=== PATIENT | male | born 1950 | race Asian ===

== ENCOUNTER 2018-06-15 19:00 | Emergency (ER) | payer MEDICARE ==
[~2018-06-15] VITALS: Ht 167.6 cm; Wt 64.4 kg
[2018-06-15] MEDS ORDERED: ATORVASTATIN CA20 MG ORAL (19:13)
[2018-06-15] MEDS ORDERED: ASPIR 8181 MG ORAL (19:13)
[2018-06-15] MEDS ORDERED: ATENOLOL25 MG ORAL (19:13)
[2018-06-15] MEDS ORDERED: CLOPIDOGREL75 MG ORAL (19:13)
[2018-06-15 19:38] LABS: EOSINOPHILS % (AUTO) 2.9 % (0.0-3.0); HEMATOCRIT 42.2 % (42.0-52.0); HEMOGLOBIN 15.3 G/DL (14.2-18.0); LYMPHOCYTES % (AUTO) 24.8 % (20.0-45.0); MEAN CORPUSCULAR VOLUME 91 FL (80-99); MONOCYTES % (AUTO) 8.1 % (1.0-10.0); NEUTROPHILS % (AUTO) 63.2 % (45.0-75.0); PLATELET COUNT 238 K/UL (150-450); RED BLOOD COUNT 4.66 M/UL (4.70-6.10); RED CELL DISTRIBUTION WIDTH 10.6 % (11.6-14.8); WHITE BLOOD COUNT 7.2 K/UL (4.8-10.8)
[2018-06-15 19:39] VITALS: BP 176/129
[2018-06-15] MEDS ORDERED: Morphine Sulfate 2mg/ml Inj(IV/IM USE ONLY) IVP ONE (19:45)
[2018-06-15 20:06] LABS: ANION GAP 9 mmol/L (5-15); BLOOD UREA NITROGEN 15 mg/dL (7-18); CALCIUM 9.4 MG/DL (8.5-10.1); CARBON DIOXIDE 27 MMOL/L (21-32); CHLORIDE 96 MMOL/L (98-107); POTASSIUM 3.9 MMOL/L (3.5-5.1); SODIUM 132 MMOL/L (136-145)
[2018-06-15 20:20] LABS: ALANINE AMINOTRANSFERASE 24 U/L (12-78); ALBUMIN 4.4 G/DL (3.4-5.0); ALBUMIN/GLOBULIN RATIO 1.1 (1.0-2.7); ALKALINE PHOSPHATASE 69 U/L (46-116); ASPARTATE AMINO TRANSFERASE 20 U/L (15-37); BILIRUBIN,TOTAL 0.7 MG/DL (0.2-1.0); CKMB 0.7 NG/ML (0.0-3.6); CREATINE KINASE 95 U/L (26-308)
[2018-06-15] MEDS: Nitroglycerin Subl 0.4mg tab SL PRN ×2 (20:55→21:23)
[2018-06-15] MEDS ORDERED: NITROSTAT0.4 M2 SL (21:02)
[2018-06-15 21:30] VITALS: BP 163/78
--- NOTE | 2018-06-15 21:50 | Emergency Room Report ---
History of Present Illness General Chief Complaint: General Complaint Source: Patient Present Illness HPI Patient is a 67-year-old male who presented after increased left sided shoulder pain. Patient onset of symptoms approximately one hour prior to arrival. Patient had a recent cardiac catheterization performed at [facility]. He reports having increased nausea as well as increased sweating. The pain was associated with left shoulder. The patient had recent the stent placement the patient poorly had developed A. fib while in the procedure and this converted with amiodarone. Patient had reportedly been cardioverted. Allergies: Coded Allergies: No Known Allergies (Unverified , 06/15/18) Patient History Past Medical History: see triage record Reviewed Nursing Documentation: PMH: Agreed; PSxH: Agreed Nursing Documentation-PMH Past Medical History: No History, Except For Review of Systems All Other Systems: negative except mentioned in HPI Physical Exam Vital Signs Date Time Temp Pulse Resp B/P (MAP) Pulse Ox O2 Delivery O2 Flow Rate FiO2 06/15/18 19:05 97.8 61 18 186/87 97 Room Air 97.9 Sp02 EP Interpretation: reviewed, normal General Appearance: normal inspection, well appearing, no apparent distress, alert, GCS 15 Head: atraumatic ENT: normal ENT inspection, hearing grossly normal, normal voice Neck: normal inspection, full range of motion, supple, no bony tend Respiratory: normal inspection, lungs clear, normal breath sounds, no respiratory distress, no retraction, no wheezing Cardiovascular #1: regular rate, rhythm, no edema Gastrointestinal: normal inspection, normal bowel sounds, non tender, soft, no guarding, no hernia Genitourinary: no CVA tenderness Musculoskeletal: normal inspection, back normal, normal range of motion Neurologic: normal inspection, alert, oriented x3, responsive, reject opener and filler III-XII nml as tested, motor strength/tone normal, speech normal Psychiatric: normal inspection, judgement/insight normal, mood/affect normal Skin: normal inspection, normal color, no rash Procedures Critical Care Time Critical Care Time Patient had a critical medical condition which untreated could potentially result in life or limb threatening injury. Total critical care time excluding procedures approximately 45 minutes. Medical Decision Making Diagnostic Impression: Primary Impression: Shoulder pain, left Additional Impression: ACS (acute coronary syndrome) ER Course Differential diagnosis included but was not limited to acute coronary syndrome, pulmonary embolism, pneumonia, aortic dissection, shingles, pneumothorax, aortic dissection, esophageal rupture, pericarditis. Patient presented for left shoulder pain. Differential diagnosis included was not limited to pneumothorax , fracture, dislocation, aortic tear, myocardial infarction among others. Because of complexity of patient's case laboratory testing and imaging studies were ordered. EKG interpreted by me showed normal sinus rhythm with rate of [address] or T wave changes.A repeat EKG was essentially unchanged. Patient was given nitroglycerin. And he is also given morphine.Patient was discussed with Dr. Gibbs from [facility] who agreed to accept the patient is a transfer Labs Test 06/15/18 19:29 White Blood Count 7.2 K/UL (4.8-10.8) Red Blood Count 4.66 M/UL (4.70-6.10) Hemoglobin 15.3 G/DL (14.2-18.0) Hematocrit 42.2 % (42.0-52.0) Mean Corpuscular Volume 91 FL (80-99) Mean Corpuscular Hemoglobin 32.8 PG (27.0-31.0) Mean Corpuscular Hemoglobin Concent 36.2 G/DL (32.0-36.0) Red Cell Distribution Width 10.6 % (11.6-14.8) Platelet Count 238 K/UL (150-450) Mean Platelet Volume 6.8 FL (6.5-10.1) Neutrophils (%) (Auto) 63.2 % (45.0-75.0) Lymphocytes (%) (Auto) 24.8 % (20.0-45.0) Monocytes (%) (Auto) 8.1 % (1.0-10.0) Eosinophils (%) (Auto) 2.9 % (0.0-3.0) Basophils (%) (Auto) 1.0 % (0.0-2.0) Prothrombin Time 10.3 SEC (9.30-11.50) Prothromb Time International Ratio 1.0 (0.9-1.1) Activated Partial Thromboplast Time 29 SEC (23-33) Sodium Level 132 MMOL/L (136-145) Potassium Level 3.9 MMOL/L (3.5-5.1) Chloride Level 96 MMOL/L (98-107) Carbon Dioxide Level 27 MMOL/L (21-32) Anion Gap 9 mmol/L (5-15) Blood Urea Nitrogen 15 mg/dL (7-18) Creatinine 1.0 MG/DL (0.55-1.30) Estimat Glomerular Filtration Rate > 60 mL/min (>60) Glucose Level 122 MG/DL (74-106) Calcium Level 9.4 MG/DL (8.5-10.1) Total Bilirubin 0.7 MG/DL (0.2-1.0) Aspartate Amino Transf (AST/SGOT) 20 U/L (15-37) Alanine Aminotransferase (ALT/SGPT) 24 U/L (12-78) Alkaline Phosphatase 69 U/L (46-116) Total Creatine Kinase 95 U/L (26-308) Creatine Kinase MB 0.7 NG/ML (0.0-3.6) Creatine Kinase MB Relative Index 0.7 Troponin I 0.027 ng/mL (0.000-0.056) Pro-B-Type Natriuretic Peptide 78 pg/mL (0-125) Total Protein 8.5 G/DL (6.4-8.2) Albumin 4.4 G/DL (3.4-5.0) Globulin 4.1 g/dL Albumin/Globulin Ratio 1.1 (1.0-2.7) EKG Diagnostic Results Rate: normal Rhythm: NSR ST Segments: no acute changes Rhythm Strip Diag. Results EP Interpretation: yes Rhythm: NSR, no PVC's, no ectopy Last Vital Signs Date Time Temp Pulse Resp B/P (MAP) Pulse Ox O2 Delivery O2 Flow Rate FiO2 06/15/18 21:30 66 17 163/78 99 Room Air 06/15/18 19:44 97.8 Status: unchanged Disposition: XFER SHT-TRM HOSP Condition: Serious Referrals: NON PHYSICIAN (PCP) José Soliman MD Jun 15, 2018 21:50
[2018-06-15 22:30] VITALS: BP 149/59
--- NOTE | 2018-06-16 09:52 | Diagnostic Imaging Report ---
Indication: Chest pain Technique: One view of the chest Comparison: none Findings: Lungs and pleural spaces are clear. Heart size is normal. The bones are unremarkable Impression: No acute process
== END 2018-06-15 22:30 | disposition short-term general hospital (02) ==
LOC: EMR 19:50
DX: I24.9 Acute ischemic heart disease, unspecified (principal); M25.512 Pain in left shoulder; Z98.61 Coronary angioplasty status; I10 Essential (primary) hypertension; Z87.891 Personal history of nicotine dependence
CPT/HCPCS: 36415; 71045; 80053; 82550; 82553; 83880; 84484; 85025; 85610; 85730; 93005; 96372; 99291; J2270

== ENCOUNTER 2018-09-03 19:45 | Emergency (ER) | payer BC, MEDICARE ==
[~2018-09-03] VITALS: Ht 167.6 cm; Wt 63.5 kg
[~2018-09-03 19:45] MED LIST: ASPIR 8181 MG ORAL; ATENOLOL25 MG ORAL; ATORVASTATIN CA20 MG ORAL; CLOPIDOGREL75 MG ORAL; NITROSTAT0.4 M2 SL
[2018-09-03] MEDS ORDERED: Isovue-300 100ml vial INJ PRN (20:15)
[2018-09-03] MEDS ORDERED: Isovue-370 150ml vial INJ PRN (20:15)
--- NOTE | 2018-09-03 20:16 | Emergency Room Report ---
History of Present Illness General Chief Complaint: Hypertension Present Illness HPI Mr. Carbone is a 67-year-old male with history of coronary artery disease who presents with right flank pain sudden onset on yesterday. At the lower thoracic upper CVA region. dull pain without radiation. Pain does not change with movement. 4 out of 10 mild severity. History of angioplasty emergent with coronary artery stent in May. Otherwise healthy. Markedly elevated BP today. Patient does not have a history of hypertension. Patient took nitroglycerin prior to arrival. 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 Review of Systems Constitutional: Denies: fever, malaise Cardiovascular: Denies: chest pain Gastrointestinal: Denies: abdominal pain Musculoskeletal: Reports: back pain All Other Systems: negative except mentioned in HPI Physical Exam Vital Signs Date Time Temp Pulse Resp B/P (MAP) Pulse Ox O2 Delivery O2 Flow Rate FiO2 09/03/18 19:50 97.7 70 16 194/90 97 Sp02 EP Interpretation: reviewed, normal General Appearance: no apparent distress, alert, GCS 15, non-toxic Head: normocephalic, atraumatic Eyes: bilateral eye normal inspection ENT: hearing grossly normal, normal pharynx, no angioedema, normal voice Neck: full range of motion, supple/symm/no masses Respiratory: chest non-tender, lungs clear, normal breath sounds, speaking full sentences Cardiovascular #1: regular rate, rhythm, no edema, no gallop, no murmur, no rub Gastrointestinal: normal bowel sounds, non tender, soft, non-distended, no guarding, no rebound Genitourinary: normal inspection, no CVA tenderness Musculoskeletal: back normal, gait/station normal, normal range of motion Neurologic: alert, oriented x3, responsive, motor strength/tone normal, sensory intact, speech normal Psychiatric: judgement/insight normal, memory normal, mood/affect normal, no suicidal/homicidal ideation Skin: normal color, no rash, warm/dry, well hydrated Lymphatic: normal inspection Medical Decision Making EKG Diagnostic Results EKG Time: 20:30 Rate: normal ST Segments: no acute changes Other Impression normal sinus rhythm normal rate normal axis normal intervals no ST elevation no ST-T signs of ischemia Last Vital Signs Date Time Temp Pulse Resp B/P (MAP) Pulse Ox O2 Delivery O2 Flow Rate FiO2 09/03/18 19:50 97.7 70 16 194/90 97 Dione Martinez MD Sep 03, 2018 20:16
[2018-09-03 20:56] LABS: APPEARANCE,URINE CLEAR; BILIRUBIN, URINE NEGATIVE (NEGATIVE); COLOR,URINE PALE YELLOW; GLUCOSE, URINE (UA) NEGATIVE (NEGATIVE); KETONES,URINE NEGATIVE (NEGATIVE); LEUKOCYTE ESTERASE ,URINE NEGATIVE (NEGATIVE); NITRITE,URINE NEGATIVE (NEGATIVE); PH,URINE 7 (4.5-8.0); PROTEIN,URINE NEGATIVE (NEGATIVE); UROBILINOGEN,URINE NORMAL MG/DL (0.0-1.0)
[2018-09-03 20:57] LABS: BASOPHILS % (AUTO) 1.1 % (0.0-2.0); EOSINOPHILS % (AUTO) 4.8 % (0.0-3.0); HEMATOCRIT 42.3 % (42.0-52.0); HEMOGLOBIN 15.3 G/DL (14.2-18.0); LYMPHOCYTES % (AUTO) 16.8 % (20.0-45.0); MEAN CORPUSCULAR VOLUME 91 FL (80-99); MONOCYTES % (AUTO) 7.6 % (1.0-10.0); NEUTROPHILS % (AUTO) 69.6 % (45.0-75.0); PLATELET COUNT 193 K/UL (150-450); RED BLOOD COUNT 4.63 M/UL (4.70-6.10); RED CELL DISTRIBUTION WIDTH 10.6 % (11.6-14.8); WHITE BLOOD COUNT 5.6 K/UL (4.8-10.8)
[2018-09-03 21:14] LABS: ANION GAP 7 mmol/L (5-15); BLOOD UREA NITROGEN 12 mg/dL (7-18); CALCIUM 8.9 MG/DL (8.5-10.1); CARBON DIOXIDE 27 MMOL/L (21-32); CHLORIDE 100 MMOL/L (98-107); CREATININE 0.8 MG/DL (0.55-1.30); POTASSIUM 3.6 MMOL/L (3.5-5.1); SODIUM 134 MMOL/L (136-145)
[2018-09-03 21:18] LABS: ALANINE AMINOTRANSFERASE 22 U/L (12-78); ALBUMIN 3.9 G/DL (3.4-5.0); ALBUMIN/GLOBULIN RATIO 0.9 (1.0-2.7); ALKALINE PHOSPHATASE 67 U/L (46-116); ASPARTATE AMINO TRANSFERASE 19 U/L (15-37); BILIRUBIN,TOTAL 0.4 MG/DL (0.2-1.0)
[2018-09-03 21:51] VITALS: BP 161/75
[2018-09-03 23:22] VITALS: BP 141/71
--- NOTE | 2018-09-04 12:21 | Diagnostic Imaging Report ---
Indication: Abdominal Pain Technique: Continuous helical transaxial imaging of the chest, abdomen and pelvis was obtained from the thoracic inlet to the pubic symphysis during rapid intravenous contrast administration. Arterial phase of enhancement obtained. Coronal 2-D reformats were also obtained and maximum intensity projection images in multiple planes. Study obtained in a Siemens sensation [address] Total Dose length Product (DLP): [address] Dose Index Volume (CTDIvol): 0.17, 0.15, 12.62, 12.62, 19.42, 12.42 mGy Comparison: None Findings: Mild basilar reticular densities are present likely a mild degree of fibrosis or scarring. Minimal bronchiectasis noted at the lung bases in association with this. The lungs are otherwise clear. The aorta appears normal in caliber. There is no dissection or aneurysm. There is mild mural calcification. The heart is unremarkable. The major aortic arch vessels appear widely patent and unremarkable. Small nodes are seen in the mediastinum. There is moderate to severe arterial vascular disease with thrombus and calcification involving the mid and distal abdominal aorta which appears mildly narrowed. There is a small dissection at the aortic bifurcation. This is a short segment dissection. There is moderate narrowing at the origin of the right common iliac artery mild narrowing and arterial vascular disease in the origin of the left common iliac artery. The external iliac arteries appear patent. The visualized part of the common femoral arteries appear unremarkable. The SMA and celiac artery are widely patent. Single bilateral renal arteries are widely patent. There is a moderate amount of fecal retention within the colon and rectum. The urinary bladder is moderately distended. Both kidneys enhance symmetrically on arterial phase images. The liver appears slightly low in attenuation consistent with fatty infiltration. The gallbladder is unremarkable. The appendix is normal. 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 Moderate focal stenosis of the right common iliac artery and mild stenosis of the left common iliac artery due to arterial vascular disease. Mild atherosclerotic disease of the thoracic aorta without evidence of significant stenosis of the aorta or major branches. No dissection or aneurysm. Nonvascular findings include moderate fecal retention, moderate distention of the urinary bladder, mild fatty liver. The CT scanner at [facility] is accredited by the [employer] and the scans are performed using dose optimization techniques as appropriate to a performed exam including Automatic Exposure control.
--- NOTE | 2018-09-05 15:15 | Cardiology Report ---
APPROVED REPORT EKG Measurement Heart [id number] Normal sinus rhythm Normal ECG
== END 2018-09-03 23:22 | disposition home or self-care (01) ==
LOC: EMR 22:08
DX: N13.1 Hydronephrosis with ureteral stricture, not elsewhere classified (principal); N40.0 Benign prostatic hyperplasia without lower urinary tract symptoms; R10.9 Unspecified abdominal pain; I10 Essential (primary) hypertension; I25.10 Atherosclerotic heart disease of native coronary artery without angina pectoris; Z72.0 Tobacco use
CPT/HCPCS: 36415; 51702; 71275; 74174; 80053; 81003; 83690; 84484; 85025; 93005; 96360; 96361; 99284